=== PATIENT | female | born 1960 | race Caucasian/White ===

== ENCOUNTER → 2017-05-15 | Outpatient (CLI) | payer BC ==
--- NOTE | 2017-05-15 12:25 | RADIOLOGY REPORT (SQ) ---
EXAM DESCRIPTION: ANKLE RIGHT COMPLETE COMPLETED DATE/TIME: 05/15/2017 12:09 pm REASON FOR STUDY: SPRAIN OF UNSPECIFIED LIGAMENT OF RIGHT ANKLE, SUBS ENCNTR S93.401D SPRAIN OF UNS PECIFIED LIGAMENT OF RIGHT ANKLE, SUBS COMPARISON: None. NUMBER OF VIEWS: Three views. TECHNIQUE: AP, lateral, and oblique radiographic images acquired of the right ankle. LIMITATIONS: None. FINDINGS: MINERALIZATION: Normal. BONES: No acute fracture or dislocation. No worrisome bone lesions. JOINTS: No effusions. SOFT TISSUES: There are some ill-defined calcifications in the soft tissues just posterior to the bas e of the 5th metatarsal on the lateral view. OTHER: No other significant finding. IMPRESSION: There is no acute abnormality. There are some unusual soft tissue calcifications as johanny cribed. Consider MRI for further evaluation if clinically indicated. TECHNICAL DOCUMENTATION: JOB ID: [id number] [employer]- All Rights Reserved
== END ==
LOC: OD 11:49
PROVIDERS: ATTEND Nurse Practitioner Acute Care
DX: S93.401D Sprain of unspecified ligament of right ankle, subsequent encounter (principal); X58.XXXD Exposure to other specified factors, subsequent encounter